=== PATIENT | male | born 1990 | race African-American/Black ===

== ENCOUNTER 2022-08-31 18:24 | Emergency (ER) | payer MEDICAID ==
[~2022-08-31] VITALS: Ht 188 cm; Wt 65.5 kg
[2022-08-31 23:26] VITALS: BP 125/83
[2022-09-01] MEDS ORDERED: ANUS2.5C2 TOP (02:28)
[2022-09-01] MEDS ORDERED: ANUSOL HC CREAM 30GM TOP ONE (02:30)
== END 2022-09-01 03:01 | disposition home or self-care (01) ==
LOC: M ED 18:24
DX: K64.4 Residual hemorrhoidal skin tags (principal); F17.200 Nicotine dependence, unspecified, uncomplicated; Z79.899 Other long term (current) drug therapy

== ENCOUNTER 2022-09-04 04:48 | Inpatient (IN) | payer MEDICAID ==
[~2022-09-04] VITALS: Ht 188 cm; Wt 62.7 kg
[2022-09-04] VITALS (7 sets, daily range): BP systolic 107–120; BP diastolic 56–78
[~2022-09-04 04:48] MED LIST: ANUS2.5C2 TOP
[2022-09-04] MEDS ORDERED: IBUP200C29 PO (04:56)
[2022-09-04] MEDS ORDERED: PIPERACILLIN/TAZOBACTAM SOD 4.5 GM in D5W MINI-BAG PLUS 50 ML IV ONE (07:05)
[2022-09-04] MEDS ORDERED: NS 1,880 ML in IV 1 EA IV ONE (07:05)
[2022-09-04] MEDS ORDERED: ONDANSETRON 4MG 2ML VIAL IV ONE (07:10)
[2022-09-04] MEDS ORDERED: MORPHINE 4 MG/ML 1ML VIAL IV ONE ×2 (07:10→13:50)
[2022-09-04] MEDS ORDERED: ACETAMINOPHEN 500 MG TAB PO ONE (07:45)
[2022-09-04 07:57] LABS: BASO % 0.2 % (0.0-1.0); EOS % 0.1 % (0.0-3.0); HEMATOCRIT 45.2 % (42.0-52.0); HEMOGLOBIN 14.3 g/dl (13.5-17.5); LYMPH # 0.8 10^3/uL (1.5-5.0); MEAN CORPUSCULAR HEMOGLOBIN 26.8 pg (27.0-33.0); MEAN CORPUSCULAR HGB CONC 31.6 g/dl (32.0-36.5); MEAN CORPUSCULAR VOLUME 84.6 fl (80.0-96.0); MONO % 7.5 % (2.0-8.0); NEUTROPHILS # 11.5 10^3/uL (1.5-8.5); NEUTROPHILS % 85.9 % (36.0-66.0); PLATELET COUNT, AUTOMATED 229 10^3/uL (150-450); RED BLOOD COUNT 5.34 10^6/uL (4.30-6.10); WHITE BLOOD COUNT 13.4 10^3/uL (4.0-10.0)
[2022-09-04 08:22] LABS: ALBUMIN 3.8 G/DL (3.2-5.2); BILIRUBIN,DIRECT 0.2 MG/DL (<0.4); BILIRUBIN,TOTAL 0.7 MG/DL (0.3-1.2); C REACTIVE PROTEIN QUANTITATIV 1.4 MG/DL (<1.0); TOTAL PROTEIN 7.7 G/DL (5.7-8.2)
[2022-09-04 08:28] LABS: RSV AMPLIFICATION NEGATIVE (NEGATIVE)
[2022-09-04 08:32] LABS: ERYTHROCYTE SEDIMENTATION RATE 9 mm/hr (0-15)
[2022-09-04] MEDS ORDERED: ISOVUE-370 76% 100ML VIAL As Ordered ONE (08:33)
[2022-09-04] MEDS ORDERED: LR 1,000 ML IV SCH ×2 (11:25→16:40)
[2022-09-04] MEDS ORDERED: PROC1CRE5 PR (11:35)
[2022-09-04] MEDS ORDERED: POLY17PO18 PO (11:35)
[2022-09-04] MEDS ORDERED: HOME MED LIST COMPLETE! XX SCH (11:40)
[2022-09-04] MEDS ORDERED: metroNIDAZOLE 500 MG in IV 1 EA IV SCH (12:00)
[2022-09-04] MEDS: PIPERACILLIN/TAZOBACTAM SOD 3.375 GM in D5W MINI-BAG PLUS 50 ML IV SCH ×2 (14:59→20:57)
[2022-09-04] MEDS ORDERED: LIDOCAINE 1% SDV 30ML VIAL As Ordered ONE (15:37)
[2022-09-04] MEDS ORDERED: ONDANSETRON 4MG 2ML VIAL As Ordered ONE (16:15)
[2022-09-04] MEDS ORDERED: SUGAMMADEX SODIUM 500 MG/5 ML VIAL (BRIDION) As Ordered ONE (16:15)
[2022-09-04] MEDS ORDERED: LIDOCAINE 2% 100MG/5ML SDV (FOR ANES.) As Ordered ONE (16:15)
[2022-09-04] MEDS ORDERED: ROCURONIUM BROMIDE 50MG/5ML VIAL As Ordered ONE (16:15)
[2022-09-04] MEDS ORDERED: MIDAZOLAM INJ 2MG/2ML VIAL (J2250 PER 1MG) As Ordered ONE (16:15)
[2022-09-04] MEDS ORDERED: propofoL 200 MG/20 ML VIAL As Ordered ONE (16:15)
[2022-09-04] MEDS ORDERED: fentaNYL 100 MCG/2 ML INJECTION As Ordered ONE (16:15)
[2022-09-04] MEDS ORDERED: ACETAMINOPHEN 1000MG 100ML IV BAG As Ordered ONE (16:23)
[2022-09-04] MEDS ORDERED: HYDROmorphone HCL 2MG/ML 1ML VIAL As Ordered ONE (16:27)
[2022-09-04] MEDS ORDERED: oxyCODONE 5MG TAB PO PRN (16:40)
[2022-09-04] MEDS ORDERED: fentaNYL 100 MCG/2 ML INJECTION IV PRN (16:40)
[2022-09-04] MEDS ORDERED: ONDANSETRON 4MG 2ML VIAL IV PRN (16:40)
[2022-09-04] MEDS: HEPARIN SOD (PORCINE) 5000UNITS/ML 1ML VIAL/SYRINGE SC SCH (20:57)
[2022-09-04] MEDS: ACETAMINOPHEN 650MG ER TAB (TYLENOL ARTHRITIS) PO PRN (23:07)
[2022-09-05] MEDS: PIPERACILLIN/TAZOBACTAM SOD 3.375 GM in D5W MINI-BAG PLUS 50 ML IV SCH ×4 (01:48→20:27)
[2022-09-05 02:00] VITALS: BP_SYST 118; BP_DIAS 24; BP_DIAS 62
[2022-09-05] MEDS: HEPARIN SOD (PORCINE) 5000UNITS/ML 1ML VIAL/SYRINGE SC SCH ×3 (05:06→21:32)
[2022-09-05 06:00] VITALS: BP 105/71
[2022-09-05 06:19] LABS: HEMATOCRIT 37.7 % (42.0-52.0); MEAN CORPUSCULAR HEMOGLOBIN 27.7 pg (27.0-33.0); MEAN CORPUSCULAR HGB CONC 32.4 g/dl (32.0-36.5); MEAN CORPUSCULAR VOLUME 85.5 fl (80.0-96.0); PLATELET COUNT, AUTOMATED 194 10^3/uL (150-450); RED BLOOD COUNT 4.41 10^6/uL (4.30-6.10); WHITE BLOOD COUNT 17.6 10^3/uL (4.0-10.0)
[2022-09-05 06:21] LABS: HEMOGLOBIN 12.2 g/dl (13.5-17.5)
[2022-09-05 06:33] LABS: MAGNESIUM LEVEL 1.9 MG/DL (1.8-2.4)
[2022-09-05 06:35] LABS: BLOOD UREA NITROGEN 20 MG/DL (9-23); CALCIUM LEVEL 8.9 MG/DL (8.5-10.1); CARBON DIOXIDE LEVEL 28 MMOL/L (20-31); CHLORIDE LEVEL 101 MMOL/L (98-107); CREATININE FOR GFR 0.97 MG/DL (0.70-1.30); GLOMERULAR FILTRATION RATE > 60.0 (>60); GLUCOSE, FASTING 95 MG/DL (60-100); PHOSPHORUS LEVEL 3.9 MG/DL (2.5-4.9); POTASSIUM SERUM 4.3 MMOL/L (3.5-5.1); SODIUM LEVEL 136 MMOL/L (136-145)
[2022-09-05] MEDS: ACETAMINOPHEN 650MG ER TAB (TYLENOL ARTHRITIS) PO PRN ×2 (08:53→18:19)
[2022-09-05 10:00] VITALS: BP 120/70
[2022-09-05] MEDS ORDERED: DAKIN'S 0.25% HALF-STRENGTH SOLN 480 ML TOP PRN (13:10)
[2022-09-05 14:00] VITALS: BP 121/60
[2022-09-05] MEDS: oxyCODONE 5MG TAB PO PRN ×2 (14:43→20:32)
[2022-09-05 18:00] VITALS: BP 124/69
[2022-09-05] MEDS: DOCUSATE SODIUM 100MG CAPSULE PO SCH (20:20)
[2022-09-05 21:51] VITALS: BP 116/67
[2022-09-06] MEDS: PIPERACILLIN/TAZOBACTAM SOD 3.375 GM in D5W MINI-BAG PLUS 50 ML IV SCH ×2 (01:11→09:20)
[2022-09-06] MEDS: ACETAMINOPHEN 650MG ER TAB (TYLENOL ARTHRITIS) PO PRN (04:48)
[2022-09-06] MEDS: HEPARIN SOD (PORCINE) 5000UNITS/ML 1ML VIAL/SYRINGE SC SCH (04:49)
[2022-09-06 06:00] VITALS: BP 99/64
[2022-09-06 08:33] LABS: HEMATOCRIT 39.7 % (42.0-52.0); HEMOGLOBIN 12.6 g/dl (13.5-17.5); MEAN CORPUSCULAR HEMOGLOBIN 27.5 pg (27.0-33.0); MEAN CORPUSCULAR HGB CONC 31.7 g/dl (32.0-36.5); MEAN CORPUSCULAR VOLUME 86.7 fl (80.0-96.0); PLATELET COUNT, AUTOMATED 196 10^3/uL (150-450); RED BLOOD COUNT 4.58 10^6/uL (4.30-6.10); WHITE BLOOD COUNT 4.6 10^3/uL (4.0-10.0)
[2022-09-06] MEDS: DOCUSATE SODIUM 100MG CAPSULE PO SCH (09:21)
[2022-09-06] MEDS ORDERED: COLA100C5 PO (09:57)
[2022-09-06] MEDS ORDERED: METR-265 PO (09:57)
[2022-09-06] MEDS ORDERED: CIPR-249 PO (09:57)
[2022-09-06] MEDS: oxyCODONE 5MG TAB PO PRN (11:50)
== END 2022-09-06 14:00 | disposition home or self-care (01) | DRG 223 ==
LOC: M ED 04:48 → M ED INP 17:52 → M MS5PR 17:52 → UNDOADMIN 17:52
PROVIDERS: ADMIT Internal Medicine; ATTEND Internal Medicine
PROC: 0D9P0ZZ Drainage of Rectum, Open Approach (ICD-10-PCS; principal; 2022-09-04 15:00)
DX: K61.1 Rectal abscess (principal); F12.90 Cannabis use, unspecified, uncomplicated